=== PATIENT | female | born 1985 | race Asian ===

== ENCOUNTER 2016-12-20 21:57 | Emergency (ER) | payer BC ==
[2016-12-21] MEDS ORDERED: KETOROLAC TROMETHAMINE INJ/PF 30 MG/1 ML SDV IV ONE (01:06)
--- NOTE | 2016-12-21 01:08 | ER Document Report ---
ED GI/ - General Chief Complaint: Bloody Stools Stated Complaint: ABDOMINAL PAIN, BLOOD IN STOOL Time seen by provider: 01:00 Notes: Patient is a 31-year-old female that comes emergency department for chief complaint of abdominal pain, she states the pain is in the mid to lower abdomen on both sides with slightly worse on the left, she states that she also had several urges to go to the bathroom but would go and nothing would come out. She states she did this several times and after a few times she noticed some blood which was bright red in the toilet, less than a cup, and she also saw some in her underwear. Patient denies vomiting but states she did feel somewhat nauseated. She denies fever, vaginal bleeding or discharge, flank pain she denies any surgeries or daily medications. TRAVEL OUTSIDE OF THE [place] IN LAST 30 DAYS: No - Related Data Allergies/Adverse Reactions: No Known Allergies Allergy (Verified 06/08/16 09:59) Past Medical History - General Information source: Patient - Social History Smoking Status: Never Smoker Frequency of alcohol use: None Drug Abuse: None Lives with: Family Family History: Reviewed & Not Pertinent - Medical History Medical History: Negative Renal/ Medical History: Denies: Hx Peritoneal Dialysis Surgical Hx: Negative - Immunizations Hx Diphtheria, Pertussis, Tetanus Vaccination: Yes - received 12/01/13 Review of Systems - Review of Systems Constitutional: No symptoms reported EENT: No symptoms reported Cardiovascular: No symptoms reported Respiratory: No symptoms reported Gastrointestinal: See HPI Genitourinary: No symptoms reported Female Genitourinary: No symptoms reported Musculoskeletal: No symptoms reported Skin: No symptoms reported Hematologic/Lymphatic: No symptoms reported Neurological/Psychological: No symptoms reported Physical Exam - Vital signs Vitals: Temp Pulse Resp BP Pulse Ox 98.2 F 70 17 125/77 99 12/20/16 23:01 12/20/16 23:01 12/20/16 23:01 12/20/16 23:01 12/20/16 23:01 Interpretation: Normal - General General appearance: Appears well, Alert In distress: None - HEENT Head: Normocephalic, Atraumatic Eyes: Normal Conjunctiva: Normal Extraocular movements intact: Yes Eyelashes: Normal Pupils: PERRL Mouth/Lips: Normal Mucous membranes: Dry Pharynx: Normal Neck: Normal - Respiratory Respiratory status: No respiratory distress Chest status: Nontender Breath sounds: Normal. No: Decreased air movement, Wheezing Chest palpation: Normal - Cardiovascular Rhythm: Regular. No: Tachycardia Heart sounds: Normal auscultation, S1 appreciated, S2 appreciated Murmur: No - Abdominal Inspection: Normal Distension: No distension Bowel sounds: Normal Tenderness: Tender - Very mild generalized tenderness, nonspecific, no guarding , no rebound tenderness, generally benign abdomen - Back Back: Normal, Nontender. No: Tender, CVA tenderness - Extremities General upper extremity: Normal inspection, Nontender, Normal color, Normal ROM , Normal temperature General lower extremity: Normal inspection, Nontender, Normal color, Normal ROM , Normal temperature, Normal weight bearing. No: Kristian's sign - Neurological Neuro grossly intact: Yes Cognition: Normal Orientation: AAOx4 [place] Coma Scale Eye Opening: Spontaneous [place] Coma Scale Verbal: Oriented [place] Coma Scale Motor: Obeys Commands [place] Coma Scale Total: 15 Speech: Normal Motor strength normal: LUE, RUE, LLE, RLE Sensory: Normal - Psychological Associated symptoms: Normal affect, Normal mood - Skin Skin Temperature: Warm Skin Moisture: Dry Skin Color: Normal Course - Re-evaluation Re-evalutation: Patient tells me she has a hemorrhoid that she knows about, patient will not allow me to perform an examination to check for this. However patient reporting some bright red blood per rectum along with abdominal pain. Patient given Toradol, IV fluids, acute abdominal series performed, laboratory and urine workup performed, no acute abnormalities. There are some ketones in the urine and elevated specific gravity. On reexamination patient is smiling, states she has absolutely no pain, is requesting to leave. Was constipated, had multiple episodes of straining before the bleeding occurred, is not currently bleeding by patient's report. Abdomen on reexaminations is soft and benign, no evidence of acute abdomen. Providing treatment for hemorrhoid, discussed hemorrhoids, discussed follow-up, discussed return precautions, patient states understanding and agreement. - Vital Signs Vital signs: Temp Pulse Resp BP Pulse Ox 97.4 F 62 16 109/61 97 12/21/16 03:43 12/21/16 03:43 12/21/16 03:43 12/21/16 03:43 12/21/16 03:43 - Laboratory Result Diagrams: 12/21/16 01:28 04/21/17 01:28 Laboratory results interpreted by me: 12/21/16 12/21/16 12/21/16 01:28 01:28 01:28 Seg Neutrophils % 84.8 H Lymphocytes % 9.1 L Absolute Neutrophils 8.9 H Sodium 146.4 H Glucose 122 H Urine Ketones 20 H Discharge - Discharge Clinical Impression: Bright red blood per rectum Abdominal pain Qualifiers: Abdominal location: generalized Qualified Code(s): R10.84 - Generalized abdominal pain Condition: Stable Disposition: HOME, SELF-CARE Additional Instructions: The bleeding was most likely from the hemorrhoid. I recommend taking the stool softener prescribed for 2-3 days, use the prescribed suppository as directed, do not strain on the toilet, drink plenty of fluids, increase fiber in diet. Follow-up with primary care for additional management. Return to emergency department for any concerning or worsening symptoms including abdominal pain or swelling, fever, or any other concerning symptoms. Prescriptions: Docusate Sodium [Colace 100 mg Capsule] 100 mg PO DAILY #30 capsule Phenylephrine HCl [Anusol Suppository] 1 supp.rect OR BID PRN #20 supp.rect PRN Reason: Forms: Return to Work
[2016-12-21 01:40] LABS: ABSOLUTE MONOCYTES (AUTO) 0.6 10^3/uL (0.1-1.4); ABSOLUTE NEUT (AUTO) 8.9 10^3/uL (1.7-8.2); BASOPHILS % (AUTO) 0.4 % (0-2); EOSINOPHILS % (AUTO) 0.3 % (0-6); HEMATOCRIT 41.6 % (36.0-47.0); HEMOGLOBIN 13.9 g/dL (12.0-15.5); HGB HCT DIFFERENCE 0.1; LYMPHOCYTES % (AUTO) 9.1 % (13-45); MEAN CORPUSCULAR HEMOGLOBIN 28.5 pg (27.0-33.4); MEAN CORPUSCULAR HGB CONC 33.5 g/dL (32.0-36.0); MEAN CORPUSCULAR VOLUME 85 fl (80-97); MONOCYTES % (AUTO) 5.4 % (3-13); RED BLOOD COUNT 4.89 10^6/uL (3.72-5.28); RED CELL DISTRIBUTION WIDTH 12.9 % (11.5-14.0); SEGMENTED NEUTROPHILS % (AUTO) 84.8 % (42-78); WHITE BLOOD COUNT 10.5 10^3/uL (4.0-10.5)
[2016-12-21 01:44] LABS: APPEARANCE,URINE CLEAR; BILIRUBIN,URINE NEGATIVE (NEGATIVE); GLUCOSE, URINE NEGATIVE (NEGATIVE); KETONES,URINE 20 mg/dL (NEGATIVE); LEUKOCYTE ESTERASE,URINE NEGATIVE (NEGATIVE); NITRITE,URINE NEGATIVE (NEGATIVE); PROTEIN,URINE NEGATIVE (NEGATIVE); URINE SPECIFIC GRAVITY 1.027; UROBILINOGEN,URINE NEGATIVE mg/dL (<2.0)
[2016-12-21 01:54] LABS: ALANINE AMINOTRANSFERASE 32 U/L (9-52); ALBUMIN 4.7 g/dL (3.5-5.0); ALKALINE PHOSPHATASE 106 U/L (38-126); ANION GAP 14 (5-19); ASPARTATE AMINO TRANSFERASE 21 U/L (14-36); BILIRUBIN,DIRECT 0.3 mg/dL (0.0-0.4); BILIRUBIN,TOTAL 0.7 mg/dL (0.2-1.3); BLOOD UREA NITROGEN 15 mg/dL (7-20); CALCIUM 10.2 mg/dL (8.4-10.2); CARBON DIOXIDE 25 mmol/L (22-30); CHLORIDE 107 mmol/L (98-107); CREATININE RESULT 0.59 mg/dL (0.52-1.25); GLUCOSE 122 mg/dL (75-110); LIPASE 49.5 U/L (23-300); POTASSIUM 4.4 mmol/L (3.6-5.0); SODIUM 146.4 mmol/L (137-145); TOTAL PROTEIN 8.1 g/dL (6.3-8.2)
[2016-12-21] MEDS ORDERED: NORMAL SALINE 1000 ML 1,000 ML IV ONE (02:17)
[2016-12-21 03:47] VITALS: BP 109/61
== END 2016-12-21 03:48 | disposition home or self-care (01) ==
LOC: ER 21:57
DX: K62.5 Hemorrhage of anus and rectum (principal); K64.9 Unspecified hemorrhoids; R10.84 Generalized abdominal pain; R11.0 Nausea; R10.817 Generalized abdominal tenderness
CPT/HCPCS: 99284; 96361; 96374; 36415; 83690; 85025; 81025; 80053; 81001; 74022; J1885; J7030